=== PATIENT | female | born 1945 | race Caucasian/White ===

== ENCOUNTER → 2016-05-26 | Outpatient (CLI) | payer MEDICARE, OTHER | END | disposition home or self-care (01) | LOC: GMAB 14:52 | PROVIDERS: ATTEND Family Medicine | DX: E03.9 Hypothyroidism, unspecified (principal); I10 Essential (primary) hypertension ==

== ENCOUNTER → 2017-05-23 | Outpatient (CLI) | payer MEDICARE, OTHER ==
--- NOTE | 2017-05-23 13:02 | US ---
Study: Right upper quadrant abdominal ultrasound. Indication: EPIGASTRIC PAIN Technical: Multiplanar, grayscale sonogram of the right upper quadrant of the abdomen obtained. Comparison: None. Findings: The liver is diffusely increased in echogenicity consistent with hepatic steatosis. The liver measures 13 cm in length. No discrete live mass. 1.3 cm hyperechoic round focus in the gallbladder fundus which appears nonmobile and may reflect a polyp or sludge ball. No gallbladder wall thickening or pericholecystic edema. The common bile duct measures 5.8 mm in diameter. No intrahepatic biliary ductal dilatation. The right kidney is unremarkable. The visualized portions of the aorta and inferior vena cava are normal. The pancreas is not optimally characterized secondary to shadowing bowel gas. Impression: Hepatic steatosis. 1.3 cm gallbladder polyp versus sludge ball. Follow-up ultrasound in one year recommended to ensure stability. Electronically signed by: Velasquez Jordan MD 05/23/2017 1:01 PM CDT
== END ==
LOC: US 12:20
PROVIDERS: ATTEND Family Medicine
DX: R10.13 Epigastric pain (principal); E03.9 Hypothyroidism, unspecified; K76.0 Fatty (change of) liver, not elsewhere classified

== ENCOUNTER → 2018-07-31 | Outpatient (CLI) | payer MEDICARE, OTHER | LOC: GMAE 12:28 | PROVIDERS: ATTEND Family Medicine | DX: E03.9 Hypothyroidism, unspecified (principal); M10.9 Gout, unspecified; I10 Essential (primary) hypertension ==

== ENCOUNTER → 2019-08-08 | Outpatient (CLI) | payer MEDICARE, OTHER | LOC: GMAE 10:35 | PROVIDERS: ATTEND Family Medicine | DX: E03.9 Hypothyroidism, unspecified (principal); I10 Essential (primary) hypertension ==